=== PATIENT | male | born 1970 | race Hispanic/Latino ===

== ENCOUNTER 2016-12-01 23:09 | Emergency (ER) | payer SELFPAY ==
[~2016-12-01 23:09] MED LIST: Lidocaine 1% 20 ML MDV ONE; Sodium Chloride Irrig Solution 250 ML BOT ONE
--- NOTE | 2016-12-01 23:59 | CT ---
FACIAL BONE CT 12/01/16 COMPARISON: None. HISTORY: Trauma, pain. TECHNIQUE: Serial axial CT imaging at 2.5 mm intervals through the facial bones without contrast. Coronal and s agittal reformatted imaging obtained. FINDINGS: The frontal sinuses, ethmoid air cells, maxillary sinuses, and sphenoid sinuses are well aerated. Th e mastoid air cells are well aerated. No mandibular fracture identified. Neither temporomandibular joint appears dislocated. The nasal bon es, zygomatic arches, and pterygoid plates appear intact. Coronal reformatted imaging demonstrates no evidence for an orbital floor fracture on either side. Partially imaged brain parenchyma appears grossly unremarkable. There is soft tissue swelling in the submandibular region, just to the right of the mandibular symphysis with a probable associated skin laceration. No radiopaque foreign body. IMPRESSION: Soft tissue injury. No associated fracture seen. POS: [facility]
[2016-12-02] MEDS ORDERED: Triple Antibiotic Oint 1 GM Packet ONE (00:18)
== END 2016-12-02 00:21 | disposition home or self-care (01) ==
LOC: MADERS 23:09
DX: S11.91XA Laceration without foreign body of unspecified part of neck, initial encounter (principal); S00.83XA Contusion of other part of head, initial encounter; S40.022A Contusion of left upper arm, initial encounter; S40.021A Contusion of right upper arm, initial encounter; F17.210 Nicotine dependence, cigarettes, uncomplicated; W22.8XXA Striking against or struck by other objects, initial encounter
CPT/HCPCS: 12001; 70486; J2001

== ENCOUNTER 2019-03-23 08:40 | Emergency (ER) | payer SELFPAY ==
[2019-03-23] MEDS ORDERED: Lidocaine 1% 20 ML MDV ONE (09:14)
[2019-03-23] MEDS ORDERED: Sulfameth/Trimethoprim DS 800-160mg TAB ONE (10:07)
== END 2019-03-23 10:14 | disposition home or self-care (01) ==
LOC: MADERS 08:40
DX: L02.31 Cutaneous abscess of buttock (principal); F17.210 Nicotine dependence, cigarettes, uncomplicated
CPT/HCPCS: 10060; J2001

== ENCOUNTER 2019-12-21 11:02 | Emergency (ER) | payer SELFPAY ==
[2019-12-21] MEDS ORDERED: Ketorolac Tromethamine 30 MG/ML VIAL ONE (11:48)
[2019-12-21] MEDS ORDERED: Acetaminophen 500 MG TAB ONE (11:48)
--- NOTE | 2019-12-21 11:59 | RAD ---
Exam:2 views left tibia fibula HISTORY: Fall. Pain. COMPARISON: None FINDINGS: No fracture, cortical irregularity or periosteal reaction. No soft tissue swelling IMPRESSION: No posttraumatic change.
== END 2019-12-21 12:15 | disposition home or self-care (01) ==
LOC: MADERS 11:02
DX: S80.12XA Contusion of left lower leg, initial encounter (principal); F17.210 Nicotine dependence, cigarettes, uncomplicated; W01.0XXA Fall on same level from slipping, tripping and stumbling without subsequent striking against object, initial encounter
CPT/HCPCS: 96372; J1885

== ENCOUNTER 2023-10-13 07:20 | Emergency (ER) | payer BC, SELFPAY ==
[2023-10-13] MEDS ORDERED: Orphenadrine Citrate 60 MG/2 ML VIAL ONE (08:41)
== END 2023-10-13 09:11 | disposition home or self-care (01) ==
LOC: MADERS 07:20
DX: M54.2 Cervicalgia (principal); Z87.891 Personal history of nicotine dependence
CPT/HCPCS: 72125; 96372; J2360

== ENCOUNTER 2025-04-04 00:46 | Emergency (ER) | payer BC, OTHER ==
[2025-04-04 01:03] LABS: #Basophils 0.1 thou/uL (0.0-0.2); #Eosinophils 0.2 thou/uL (0.0-0.7); #Lymphocytes 2.5 thou/uL (1.20-3.40); #Monocytes 0.7 thou/uL (0.11-0.59); #Neutrophils 2.3 thou/uL (1.40-6.50); %Basophils 1.4 % (0.0-1.0); %Eosinophils 2.9 % (0.0-10.0); %Lymphocytes 43.2 % (21.0-51.0); %Monocytes 12.2 % (0.0-10.0); %Neutrophils 40.4 % (42.0-75.0); Hematocrit 49.4 % (42.0-52.0); Hemoglobin 14.9 g/dL (14.0-18.0); Mean Corpuscular Hemoglobin 27.2 pg (27.0-31.0); Mean Corpuscular Volume 89.7 fl (78.0-98.0); Platelet Count 299 10x3/uL (130-400); Red Blood Cell (RBC) Count 5.50 mill/uL (4.70-6.10); White Blood Cell (WBC) Count 5.8 10x3/uL (4.8-10.8)
[2025-04-04 01:19] LABS: ALT (SGPT) 11 U/L (Less than 45); AST (SGOT) 19 U/L (11-34); Albumin 4.3 g/dL (3.1-4.5); Alkaline Phosphatase 48 U/L (40-110); Anion Gap 13 mmol/L (10-20); BUN (Urea Nitrogen) 11 mg/dL (8.4-25.7); Bilirubin, Total 0.9 mg/dL (0.3-1.2); Calc. Creatinine Clearance 0 mL/min (70-130); Calcium 9.4 mg/dL (7.8-10.44); Carbon Dioxide 24 mmol/L (22-29); Chloride 106 mmol/L (98-107); Globulin 3.0 g/dL (2.4-3.5); Glucose 98 mg/dL (70-105); Potassium 3.7 mmol/L (3.5-5.1); Sodium 139 mmol/L (136-145); Troponin I Less than 0.010 ng/mL (< 0.028)
[2025-04-04] MEDS ORDERED: Mag-Al 1200 mg/1200 mg/30 ML UDCUP ONE (01:44)
[2025-04-04] MEDS ORDERED: Ketorolac Tromethamine 30 MG (1 mL) VIAL ONE (01:44)
[2025-04-04] MEDS ORDERED: Lidocaine Viscous Sol 2% 15 ml UD Cup ONE (01:44)
== END 2025-04-04 02:23 | disposition home or self-care (01) ==
LOC: MADERS 00:46
DX: R07.89 Other chest pain (principal); K30 Functional dyspepsia; Z87.891 Personal history of nicotine dependence
CPT/HCPCS: 71045; 80053; 84484; 85025; 93005; 94760; 96374; J1885